=== PATIENT | male | born 1945 | race Caucasian/White ===

== ENCOUNTER 2021-11-16 12:38 | Outpatient (CLI) | payer MEDICARE, BC, SELFPAY ==
--- NOTE | 2021-11-16 07:59 | OP_ITS ---
OPERATIVE PROCEDURE Bilateral YAG laser capsulotomy. PREOP DIAGNOSIS Opacified lens capsule. 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 ? POSTOP DIAGNOSIS Opacified lens capsule. 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 ?Repaired. ? COMPLICATIONS None. INDICATION FOR SURGERY The patient has noted that he has difficulty with reading and driving due to decreased visual acuity following cataract surgery that was done a few years ago. ?Severity is 5/10. ?Ivan Marshall MD was unable to improve his vision refractively. ?For that reason, the patient elected to proceed with surgical repair. ? I have explained the risks, benefits, alternative treatments including possible loss of the eye to this patient. ?He understands, accepts, and elects to proceed with surgical repair. ?Both pupils were dilated with 1% Mydriacyl with topical anesthetic applied to the corneal surface. ?He was positioned in front of the YAG laser, where a standard cruciform capsulotomy was performed on the right utilizing 34 pulses at 2.2 mJ. ?The fellow eye received 64 pulses at 2.2 mJ. ? ? The patient was then discharged in good condition, having tolerated the procedure well.
[2021-11-16] MEDS: TETRACAINE 0.5% OPHTH 1 DROP EYE-BOTH ×2 (12:56→13:05)
[2021-11-16] MEDS: BRIMONIDINE TARTRATE 0.2% OPHTH 1 DROP EYE-BOTH ×2 (12:58→14:08)
[2021-11-16 13:01] VITALS: BP 153/72; PULSE 67; RESP 16; O2SAT 98
== END 2021-11-16 14:10 | disposition home or self-care (01) ==
PROVIDERS: PCP Nurse Practitioner Family; Visit Provider Ophthalmology
DX: H26.9 Unspecified cataract (principal)
CPT/HCPCS: 66821; A9270